=== PATIENT | female | born 1965 ===

== ENCOUNTER → 2021-05-12 | Outpatient (CLI) | payer OTHER ==
[~2021-05-12] VITALS: Ht 152.4 cm; Wt 88.9 kg
[~2021-05-12] MED LIST: PROAIR HFA8.5 GM INH
--- NOTE | ~2021-05-12 | HPC ---
[facility] [place] [address] PAIN MANAGEMENT CONSULTATION Name: PATTI CRUZ Room #: REG PAULZina Merchant#: [id number] Admission: 05/12/21 Attend Phys: Joseluis Genao DO Discharge: Date of : 61 Report #: [id number] THIS REPORT FOR: cc: Lali Chandler MD,Joseluis Key MD, DO ~ cc: Lali Chandler MD PhD DATE OF SERVICE: 05/12/2021 CHIEF COMPLAINT: Right abdominal wall pain. HISTORY OF PRESENT ILLNESS: As you know, the patient is a 55-year-old female who reports acute onset of right lateral abdominal wall pain the day after her surgery for a left-sided hernia repair. The patient reports the pain is exactly the same as the pain she had on the left side prior to the hernia repair that presented the day she awoke from surgery. She states she has been experiencing symptoms present in that area since that time. She has a history of ileostomy with a stoma on the right, which was revised to the left side. The patient reported no pain in the area that she is currently experiencing pain after that surgery. The pain only began after the recent left hernia repair surgery. She denies specific injury or trauma that may have led to symptom development. She sought evaluation through the surgical team who advised the patient to look towards conservative treatment options initially. She has not had any imaging of the area according to the patient since her symptoms have begun. She has been referred to our service to discuss whether or not we have any treatment options available to treat the symptoms she is experiencing. The patient reports today her pain is steady and constant. She describes the pain as shooting, stabbing and tender. Pain is at a level of 6/10 today. It daily averages anywhere from 2-6/10, worst pain has been at 6/10. The patient states the pain is only exacerbated with standing, walking and/or rising from a seated position. Periodically, she will have symptoms that come suddenly when she is sitting down. She states that staying still tends to improve pain. She has been referred to our service to discuss whether or not, treatment options are available to address this pain. PAST MEDICAL HISTORY: 1. Diabetes mellitus type 2. 2. Chronic anemia. 3. Asthma. 4. Chronic colon problems. 5. Abdominal wall problems with known hernias. PAST SURGICAL HISTORY: 2017 ileostomy, 2018 cholecystectomy, 06/2020 herniorrhaphy and revision of ileostomy from right side to left side , 01/2021 left herniorrhaphy. [address] [address] PAIN MANAGEMENT CONSULTATION Name: PATTI CRUZ Room #: REG CL Mayur#: [id number] Admission: 05/12/21 Attend Phys: Joseluis Genao DO Discharge: Date of : 61 Report #: [id number] SOCIAL HISTORY: The patient denies tobacco, alcohol or IV or illicit drug use. 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 She is working, not receiving workmen's compensation nor is she trying to obtain disability benefits. She is not in litigation in regards to pain. She has been off work from 02/01/2021 through 04/09/2021 due to the symptoms that she is experiencing. She is unaccompanied at today's visit. REVIEW OF SYSTEMS: Positive for weight gain, fatigue and weakness, frequent and recurrent headaches, wearing corrective eyewear, sore throat with voice changes and shortness of breath, asthma, wheezing, abdominal pain and abdominal wall pain, frequent urination, nocturia, varicose veins, frequent and recurrent headaches, numbness and tingling sensations and diabetes mellitus type 2. All other review of systems negative per 12-point review of systems other than those listed in history of present illness. Pain impact score 58 of 70, severe interference of daily activities secondary to pain. ALLERGIES: MORPHINE SULFATE, HYDROCODONE, PHENYTOIN, IBUPROFEN, CIPROFLOXACIN, AZATHIOPRINE, SERTRALINE, PAROXETINE, DILAUDID, INFLIXIMAB, OXYCODONE, HYDROMORPHONE, REMICADE, FLAGYL, INFANRIX. CURRENT MEDICATIONS: Ibuprofen oapo-qeb-rruciyp 200 mg dose t.i.d., acetaminophen 500 mg 2 tabs b.i.d. IMAGING: No imaging available. PHYSICAL EXAMINATION: VITAL SIGNS: Blood pressure 108/59, pulse is 70, respiratory rate 16 and unlabored. The patient 99% on room air. Height 5 feet tall, weight 196 pounds, BMI calculated 38.3. GENERAL: Well-developed, well-nourished, well-hydrated, morbidly obese 55-year-old female appearing her stated age. She appears in no acute distress. Awake, alert and oriented x 3. Pain is rated at 3/10. HEENT: Normocephalic, atraumatic. Pupils equal, round and responsive. She is wearing a mask in compliance with COVID-19 regulations. LUNGS: Appear clear. No wheeze, rhonchi, no rales. CARDIOVASCULAR: Regular. No appreciable gallop, no rub. ABDOMEN: Soft, obese. Bowel sounds are present. There is noted surgical scars from previous abdominal wall surgeries and stoma repositioning. EXTREMITIES: Show no clubbing, no cyanosis. No appreciable edema. MUSCULOSKELETAL: The patient has tenderness to deep palpation lateral to the closed stoma site on the right. This was approximately 3 to 5 cm lateral to the stoma site. Deep palpation of this area causes improvement in symptoms. There is no palpable hernia by simple palpation. There is no skin color changes [facility] [address] [place] [address] PAIN MANAGEMENT CONSULTATION Name: PATTI CRUZ Room #: REG LIVIA Dillard.#: [id number] Admission: 05/12/21 Attend Phys: Joseluis Genao DO Discharge: Date of : 61 Report #: [id number] overlying the area. No rashes or lesions concerning of any type of infectious process. ASSESSMENT: 1. Right lateral abdominal pain. 2. History of previous hernias. 3. Chronic intractable pain. PLAN: 1. Based on today's physical exam, the history the patient provides, the distribution of symptoms, the patient is experiencing pain and the improvement in symptoms with pressure, the likely source of the patient's pain is abdominal wall in origin. The patient had a negative Valsalva maneuver, which would rule out muscle spasming as the source of symptoms. Scar tissue may be present, but I was unable to elicit any increase in symptoms with deep palpation in the area nor was the Valsalva maneuver or maneuvers to increase abdominal wall pressure. There is no allodynia overlying the area consistent with any type of neuropathic symptom. The patient indicates the pain is only present with standing, walking, bending at the area and arising from a seated position. She also reports that the symptoms she is experiencing currently are exactly the same symptoms she had prior to the herniorrhaphy on the left in January. The patient reports the symptoms that she is experiencing began directly after that surgery and has been present since that time. After this evaluation and given the findings of physical exam, I do not have an interventional treatment option that would be beneficial for this patient. Her symptoms are not related to muscle spasming based on the physical exam and the provocating factors that lead to her symptoms, scar tissue may be present, but again this is not going to be responsive to any type of injection. I am concerned, the patient may have an underlying abdominal wall weakness and possible hernia given the fact that the patient is reporting pain that is exactly the same as she experienced on the left side prior to her herniorrhaphy. We have discussed with the patient that topical agents might be beneficial, but oral medications given her extensive reports of allergies, would not be possible. She reports allergic reaction to MORPHINE, HYDROCODONE, OXYCODONE, DILAUDID. I would not recommend any type of opioid treatment based on that list of allergies. We did discuss the possibility of utilizing topical agents to assist and would recommend that the patient follow up with her surgeon for further evaluation and imaging. Based on the examination today, no interventional treatment option would be recommended. We will provide the patient with some topical agents she can trial for pain control. As for further evaluation, I do recommend the patient follow up with Dr. Chandler, the patient's surgeon for evaluation of this lateral aspect of the abdominal wall as there is concern of possible underlying hernia. The patient is agreeable with that plan. 2. No interventional treatments are recommended on this patient at this time. Trigger point injections or treatment with injection therapies are not warranted in this presentation. I am not able to elicit any muscle spasming that would [facility] [address] [place] [address] PAIN MANAGEMENT CONSULTATION Name: PATTI CRUZ Room #: LUIS Merchant#: [id number] Admission: 05/12/21 Attend Phys: Joseluis Genao DO Discharge: Date of : 61 Report #: [id number] respond to trigger point injections. The patient is reporting improvement in symptoms with pressure over the area, which is fairly consistent with concern of a hernia. She is having no topical symptoms, specifically that are neuropathic in origin. She does have some numbness in the area that is near the stoma, but not in the area of her discomfort currently. We recommend some topical agent as a trial course of treatment. 3. The patient was provided a prescription of topical cream made of ketamine 5%, baclofen 2%, cyclobenzaprine 2%, diclofenac 3%, gabapentin 6% and lidocaine 2% to be applied up to 3 times a day. I have given the patient 240 grams of the medication with 1 refill, essentially 2 months' worth of medication. She can follow up with Dr. Chandler for refills of this medication if it is beneficial. 4. We wish to thank Dr. Chandler for the referral of the patient to our clinic. We have recommended the patient return to your services for further evaluation, specifically in regards to the right lateral abdominal wall. Again, we were unable to elicit any findings that would warrant interventional treatment. I would recommend a possible evaluation with further imaging, given the fact the patient is reporting symptoms that are exactly the same as she had on the left side prior to her hernia repair. Again, we wish to thank you for the opportunity to see the patient in consultation. We will be available if you have any questions or concerns. By: [id number] Joseluis Genao DO /nt
[2021-05-12 08:27] VITALS: BP 108/59
--- NOTE | 2021-05-12 08:46 | NUR ---
Pain Clinic Assessment: 1. History of Osteoarthritis: History of Rheumatoid Arthritis: 2. Height: 5 ft. 0 in. 152.4 cm. Weight: 196.0 lb. oz. 88.905 kg. Patient's BMI: 38.3 3. Vital Signs: BP: 108/59 Pulse: 70 Resp: 16 Temp: 02 Sat: 99 ECG Mon: 4. Pain Intensity: 3 5. Fall Risk: Dizziness: N Needs help standing or walking: N Fallen in the last 3 months: N Fall risk comments: 6. Patient on Blood Thinner: None 7. History of Hypertension: N 8. Opioid Therapy greater than 6 weeks: Opiate Contract Signed: 9. Risk Assessment Tool Provided: 0 LOW RISK 10. Functional Assessment Tool: 58/70 11. Recreational Drug Use: Never Drug Type: Tobacco Use: Never Smoker Tobacco Type: Amount or Packs/day: How Many Years: Alcohol Use: Yes Frequency: Special Occasions Quant: 1
== END ==
LOC: PAIN 07:01
PROVIDERS: ATTEND Anesthesiology Pain Medicine
DX: R10.9 Unspecified abdominal pain (principal); G89.29 Other chronic pain; E11.9 Type 2 diabetes mellitus without complications; D64.89 Other specified anemias; Z79.899 Other long term (current) drug therapy; Z88.8 Allergy status to other drugs, medicaments and biological substances; Z88.1 Allergy status to other antibiotic agents

== ENCOUNTER → 2021-07-06 | Outpatient (CLI) | payer OTHER ==
[~2021-07-06] VITALS: Ht 152.4 cm; Wt 90.6 kg
[2021-07-06 08:53] VITALS: BP 113/65
--- NOTE | 2021-07-06 09:08 | NUR ---
Pain Clinic Assessment: 1. History of Osteoarthritis: KNEES FINGERS History of Rheumatoid Arthritis: Not Applicable 2. Height: 5 ft. 0 in. 152.4 cm. Weight: 199.8 lb. oz. 90.629 kg. Patient's BMI: 39.0 3. Vital Signs: BP: 113/65 Pulse: 71 Resp: 18 Temp: 02 Sat: 100 ECG Mon: 4. Pain Intensity: 3 5. Fall Risk: Dizziness: Y Needs help standing or walking: N Fallen in the last 3 months: N Fall risk comments: 6. Patient on Blood Thinner: None 7. History of Hypertension: N 8. Opioid Therapy greater than 6 weeks: Opiate Contract Signed: 9. Risk Assessment Tool Provided: 0 LOW RISK 10. Functional Assessment Tool: 58/70 11. Recreational Drug Use: Never Drug Type: Tobacco Use: Never Smoker Tobacco Type: Amount or Packs/day: How Many Years: Alcohol Use: Yes Frequency: Quant:
--- NOTE | 2021-07-13 09:09 | P ---
[place] [address] PROCEDURE REPORT Name: PATTI CRUZ [facility] [id number] Admission: 07/06/21 Attend Phys: Joseluis Genao DO Discharge: Date of : 61 Report #: [id number] THIS REPORT FOR: cc: Lali Chandler MD,Joseluis Key MD, DO ~ cc: Lali Chandler MD PhD DATE OF SERVICE: 07/06/2021 PROCEDURE NOTE PROCEDURE: L1-L2 lumbar epidural steroid injection under fluoroscopic guidance. DESCRIPTION OF PROCEDURE: After obtaining written consent, the patient was taken back to the fluoroscopy suite, placed in prone position with pillow under abdomen to decrease lumbar lordosis. Skin overlying the lumbosacral area was then prepped and draped in aseptic fashion. The lumbar intervertebral spaces were identified by AP fluoroscopy. Skin and subcutaneous tissue overlying the target site injection were anesthetized with 3 mL 1% lidocaine. A 20 gauge 3-1/2 inch Tuohy needle was advanced under fluoroscopic guidance towards the epidural space using a midline approach. The epidural space was identified using loss of resistance to air technique. After negative aspiration for heme or cerebrospinal fluid, 1 mL of Omnipaque was injected. Lumbar epidurogram was confirmed using both AP and lateral fluoroscopy. After negative aspiration for heme or cerebrospinal fluid, 5 mL of a solution containing 2 mL 40 mg per mL 80 mg total of triamcinolone along with 3 mL lidocaine 1% was injected slowly. Needle was retracted care home, flushed with 1 mL of 1% lidocaine and removed. Sterile bandage placed over injection site. No new motor deficit was present in the lower extremities following procedure. The patient tolerated the procedure well, carefully escorted to the recovery room in stable condition. No apparent complications. After meeting our discharge criteria, the patient was discharged home. <ELECTRONICALLY SIGNED> By: Joseluis Genao DO 07/13/21 0909 [id number] Joseluis Genao DO /nt
--- NOTE | 2021-07-13 09:09 | HPC ---
[facility] [place] [address] PAIN MANAGEMENT CONSULTATION Name: PATTI CRUZ Room #: REG LIVIA Gilma.#: [id number] Admission: 07/06/21 Attend Phys: Joseluis Genao DO Discharge: Date of : 61 Report #: [id number] THIS REPORT FOR: cc: Lali Chandler MD,Joseluis Key MD, DO ~ cc: Lali Chandler MD PhD DATE OF SERVICE: 07/06/2021 REFERRING PHYSICIAN: Lali Chandler MD CHIEF COMPLAINT: Bilateral abdominal pain. HISTORY OF PRESENT ILLNESS: As you know, the patient is a 55-year-old female, reported acute onset of right lateral abdominal pain the day after she awoke from surgery to address herniorrhaphy. She continued to experience this pain generator. She was seen in consultation per the request of the referring physician and advised that her symptoms are not related to the lumbar spine based on physical exam, the history she provides and the lack of dermatomal distribution. She was advised to try a conservative treatment option and return to her referring physician. The patient has undergone revision of her ileostomy with a stoma replacement on the right, moved to the left; she is now experiencing similar left abdominal wall pain. She sought evaluation through her surgeon, who had the patient undergo CT of the abdomen and pelvis. The CT abdomen and pelvis showed some mild degenerative changes of the lumbar spine, but no specific lateralizing features and nothing consistent with bilateral nerve root impingement to address a T11-T12 distribution. The patient was advised to return to our clinic to determine if an injection would be helpful. The patient indicates the pain she is experiencing on the left side is exactly the same as it was on the right side. She is able to place the ____ within the abdominal surgical area. There is no radiation of symptoms from the thoracic or upper lumbar area. The patient indicates pain is exacerbated with movement and nearly completely resolved with lying down, indicating a mechanical source of symptoms. She has undergone a CT examination, which according to the CT shows abdominal mesh which is from the wall, about 1.5 cm, and they are indicating that clinical correlation may be of benefit. The patient had been referred back to our clinic to trial an injection in hopes of improving pain. The patient denies injury or trauma that may have led to symptom development. She states pain began directly after surgeries. ALLERGIES: MORPHINE, HYDROCODONE, OXYCODONE, PHENYTOIN, IBUPROFEN, CIPROFLOXACIN, METRONIDAZOLE, AZATHIOPRINE, PERTUSSIS, CETIRIZINE, PAROXETINE, HYDROMORPHONE AND INFLIXIMAB. CURRENT MEDICATIONS: Albuterol 2 puffs every 4 hours p.r.n. [address] [address] PAIN MANAGEMENT CONSULTATION Name: PATTI CRUZ Room #: REG CLI M.Omega.#: [id number] Admission: 07/06/21 Attend Phys: Joseluis Genao DO Discharge: Date of : 61 Report #: [id number] SOCIAL HISTORY: The patient denies tobacco, alcohol or IV or illicit drug use. 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 IMAGING: CT of the abdomen and pelvis obtained on 06/18/2021 shows no acute abnormalities in the abdomen. There are postsurgical changes of ventral herniorrhaphy with internal mesh, which appears from the anterior abdominal wall; left lower quadrant ileostomy, postsurgical changes along the anterior abdominal wall. No suspicious osseous lesions or acute processes. There is multilevel mild degenerative changes of the lumbar spine; no findings in the thoracic area. PHYSICAL EXAMINATION: VITAL SIGNS: Blood pressure 113/65, pulse 71, respiratory rate 18 and unlabored. The patient is 100% on room air. Height 5 feet tall, weight 199.8 pounds, BMI calculated 39.0. GENERAL: Well-developed, well-nourished, well-hydrated, exogenously obese 55-year-old female appearing stated age. Pain is rated today at around 3/10. HEENT: Normocephalic, atraumatic. Pupils are round. She is wearing a mask in compliance with COVID-19 regulations. EXTREMITIES: Show no clubbing, no cyanosis and no edema. MUSCULOSKELETAL: There is again tenderness to palpation over the abdominal area. Deep palpation to the postsurgical changes on the right intensify the pain, as does around the incision on the left. Seated straight leg raising is negative, supine straight leg raising is negative. ANGLE test is negative. Modified Gaenslen's positive for axial back pain. Ankle clonus is negative. Babinski is negative. ASSESSMENT: 1. Bilateral lateral abdominal pain. 2. Mild degenerative changes of the lumbar spine. 3. Chronic intractable pain. PLAN: 1. The patient returns today in followup visit, indicating that she has been advised that her pain may be related to findings of mild degenerative changes in the lumbar spine. I advised the patient this is not likely the source of symptoms. The fact that she had symptom development directly after surgery would indicate postsurgical issues, possibly some scar tissue. There is also noted mesh separation, which could also be the source of her ongoing symptoms. To have radicular symptoms that only affect the areas of the sites of surgery would be extremely unusual. The patient has no radiation of symptoms from the thoracic area, which would be required for the patient to have a radiculopathy in the area that she is placing symptoms. There are no findings on the CT examinations that would correlate to those distribution of symptoms; specifically, the T11-T12 dermatomal distribution. The patient has no skin [facility] [address] [place] [address] PAIN MANAGEMENT CONSULTATION Name: CRUZPATTI Virk Room #: REG CL Gilma.#: [id number] Admission: 07/06/21 Attend Phys: Joseluis Genao DO Discharge: Date of : 61 Report #: [id number] color changes consistent with some type of development of postherpetic neuralgia. She is able to localize symptoms to the abdominal wall specifically, and indicates the pain is only present with movement; it is not present when lying down, which is indicative more of a mechanical process and not a neuropathic process. The patient was referred back to our clinic to trial epidural injection, to essentially rule out a radicular component. We discussed this with the patient today. I did advise her that the risks of this procedure are as follows. We discussed the risks as including but not necessarily limited to bleeding, bruising, infection, worsening pain, no relief of pain; also risk of temporary or permanent muscle weakness, temporary or permanent nerve damage, possible paralysis and . The patient stated she understood and did wish to proceed. 2. No medication change was made at today's visit. We recommend current medical therapy. 3. The patient will be returning to see her colorectal surgeon to discuss the ongoing pain that she is experiencing. We have advised the patient to contact our clinic, to advise us whether or not she sees any benefit with the injection provided today. We will keep you apprised if she does contact our clinic in regards to this issue. I did advise the patient as well if she does note excellent improvement in symptoms and this lasts for a prolonged period of time, we would be more than willing to see her back in followup visit to undergo the next in the series of injections. PROCEDURE NOTE DESCRIPTION OF PROCEDURE: L1-L2 lumbar epidural steroid injection under fluoroscopic guidance. After obtaining written consent, the patient was taken back to the fluoroscopy suite, placed in prone position with pillow under abdomen to decrease lumbar lordosis. Skin overlying the lumbosacral area was then prepped and draped in aseptic fashion. The lumbar intervertebral spaces were identified by AP fluoroscopy. Skin and subcutaneous tissue overlying the target site injection were anesthetized with 3 mL 1% lidocaine. A 20 gauge 3-1/2 inch Tuohy needle was advanced under fluoroscopic guidance towards the epidural space using a midline approach. The epidural space was identified using loss of resistance to air technique. After negative aspiration for heme or cerebrospinal fluid, 1 mL of Omnipaque was injected. Lumbar epidurogram was confirmed using both AP and lateral fluoroscopy. After negative aspiration for heme or cerebrospinal fluid, 5 mL of a solution containing 2 mL 40 mg per mL 80 mg total of triamcinolone along with 3 mL of lidocaine 1% was injected slowly. Needle was retracted prison, flushed with 1 mL of 1% lidocaine and removed. Sterile bandage placed over injection site. No new motor deficit was present in the lower extremities following procedure. [address] [address] PAIN MANAGEMENT CONSULTATION Name: PATTI CRUZ Room #: REG LIVIA Merchant#: [id number] Admission: 07/06/21 Attend Phys: Joseluis Genao DO Discharge: Date of : 61 Report #: [id number] The patient tolerated the procedure well, carefully escorted to the recovery room in stable condition. No apparent complications. After meeting our discharge criteria, the patient was discharged home. <ELECTRONICALLY SIGNED> By: Joseluis Genao DO 07/13/21 0909 [id number] Joseluis Genao DO /nt
== END | disposition home or self-care (01) ==
LOC: PAIN 06:56
PROVIDERS: ATTEND Anesthesiology Pain Medicine
DX: M54.16 Radiculopathy, lumbar region (principal); M51.36 Other intervertebral disc degeneration, lumbar region; G89.29 Other chronic pain; R10.9 Unspecified abdominal pain; M19.90 Unspecified osteoarthritis, unspecified site; Z98.890 Other specified postprocedural states; Z79.899 Other long term (current) drug therapy